=== PATIENT | male | born 1995 | race Caucasian/White ===

== ENCOUNTER 2022-03-21 13:28 | Emergency (ER) | payer OTHER ==
[2022-03-21] MEDS ORDERED: Lidocaine 2% 20 ML MDV INFILT ONE (13:29)
[2022-03-21] MEDS ORDERED: Acetaminophen 500 MG Tab PO ONE (13:39)
[2022-03-21] MEDS ORDERED: Ibuprofen 600 MG Tab PO ONE (13:40)
[2022-03-21] MEDS ORDERED: Diphtheria,Pertussis(Acell),Tetanus Vaccine 0.5 ML Syringe IM ONE (14:57)
== END 2022-03-21 15:10 | disposition home or self-care (01) ==
LOC: FB.ED 13:28
DX: S61.212A Laceration without foreign body of right middle finger without damage to nail, initial encounter (principal); Z23 Encounter for immunization; W23.1XXA Caught, crushed, jammed, or pinched between stationary objects, initial encounter
CPT/HCPCS: 12002; 73140; 90471; 90715; 99283; A9270